=== PATIENT | male | born 1960 | race Caucasian/White ===

== ENCOUNTER 2021-10-25 11:43 | Outpatient (REF) | payer OTHER, SELFPAY ==
[2021-10-25 13:38] LABS: Binax Internal Control QC Valid; Binax Lot number: 9864; Binax Now Covid-19 Ag Negative (Negative)
== END 2021-10-25 11:44 | disposition home or self-care (01) ==
LOC: HO.LAB 11:43
PROVIDERS: Visit Provider Internal Medicine
DX: Z20.822 Contact with and (suspected) exposure to COVID-19 (principal)
CPT/HCPCS: 36415; C9803

== ENCOUNTER 2021-11-14 10:39 | Outpatient (REF) | payer OTHER, SELFPAY ==
[2021-11-14 10:58] LABS: MANUAL DIFF FLAG NO
[2021-11-14 11:32] LABS: Basophils Percent Auto 0.4 % (0-2); Eosinophils Absolute Auto 0.2 X10*3/uL (0.0-0.4); Eosinophils Percent Auto 2.9 % (0-4); Hematocrit 43.1 % (42.0-52.0); Hemoglobin 14.6 g/dl (14.0-18.0); Imm Gran Abs Auto 0.02 X10*3/uL (0.00-0.03); Imm Gran Pct Auto 0.3 % (0.0-0.4); Lymphocytes Absolute Auto 1.5 X10*3/uL (1.2-4.9); Lymphocytes Percent Auto 18.9 % (20-40); Mean Corpuscular HGB Conc 33.9 g/dl (31.0-36.0); Mean Corpuscular Hemoglobin 29.1 pg (27.0-33.0); Mean Corpuscular Volume 85.9 fL (80.0-98.0); Mean Platelet Volume 10.4 fL (9.4-12.4); Monocytes Absolute Auto 0.7 X10*3/uL (0.1-1.2); Monocytes Percent Auto 8.9 % (2-11); Neutrophils Absolute Auto 5.3 x10*3/uL (2.0-8.3); Neutrophils Percent Auto 68.6 % (45-73); Platelet Count 207 X10*3/uL (160-400); Red Blood Count 5.02 X10*6/uL (4.60-5.80); Red Cell Distribution Width 11.4 % (11.0-16.0); White Blood Count 7.7 X10*3/uL (4.8-10.8)
[2021-11-14 12:11] LABS: Alanine Aminotransferase 8 U/L (0-40); Alkaline Phosphatase 84 U/L (39-117); Anion Gap 11 (12-20); Aspartate Amino Transferase 20 U/L (5-37); Bilirubin Total 1.4 mg/dL (0.0-1.0); Blood Urea Nitrogen 15 mg/dL (9-16); Calcium 9.4 mg/dL (8.4-10.2); Carbon Dioxide 25 mmol/L (22-29); Chloride 108 mmol/L (96-108); Cholesterol 172 mg/dL; Estimated Glomerular Filt Rate > 60; Glucose Fasting 99 mg/dL (60-99); HDL Cholesterol 42 mg/dL; LDL Cholesterol Calculated 109 mg/dl; Potassium 4.3 mmol/L (3.3-5.1); Sodium 140 mmol/L (135-145); Total Protein 7.3 g/dL (6.5-8.0); Triglycerides 105 mg/dL
[2021-11-14 12:12] LABS: Prostate Specific Antigen 0.96 ng/mL (<0.05-4.0); TSH reflex Free T4 0.86 uIU/mL (0.32-4.0); Vitamin D 25-OH Total 19.9 ng/mL (>30)
[2021-11-14 12:30] LABS: Appearance Urine CLEAR; Color Urine YELLOW; Glucose Urine UA NEG (NEG); Leukocyte Esterase Urine NEG (NEG); Nitrite Urine NEG (NEG); Specific Gravity - Urine 1.025 (1.005-1.025); Urine Blood NEG (NEG); Urine Ketones NEG (NEG); Urine Protein NEG (NEG-TRACE)
== END 2021-11-14 10:40 | disposition home or self-care (01) ==
LOC: HO.LAB 10:39
PROVIDERS: PCP Internal Medicine; Visit Provider Internal Medicine
DX: Z00.00 Encounter for general adult medical examination without abnormal findings (principal); I10 Essential (primary) hypertension; E78.00 Pure hypercholesterolemia, unspecified; E66.3 Overweight; E55.9 Vitamin D deficiency, unspecified; N40.0 Benign prostatic hyperplasia without lower urinary tract symptoms; Z12.5 Encounter for screening for malignant neoplasm of prostate
CPT/HCPCS: 36415; 80053; 80061; 81003; 82306; 84153; 84443; 85025

== ENCOUNTER → 2023-03-03 10:44 | Outpatient (BNVA) | payer OTHER, SELFPAY | PROVIDERS: PCP Internal Medicine; Visit Provider Physician Assistant ==

== ENCOUNTER 2023-07-14 09:44 | Day surgery (SDC) | payer OTHER, SELFPAY ==
[2023-07-12 15:05] VITALS: BMI 26.6
--- NOTE | 2023-07-13 12:15 | P.CONAN_ITS ---
Documented by User: Roro Ragland NP 07/13/23 12:15 HPI - Anesthesia Eval Consult details Narrative: 63yo M for Colonoscopy PMFSH Active Problems Active Problems: All Active Problems (Updated 07/12/23 @ 15:03 by Debora Marinelli, DIONY) History of adenomatous polyp of colon (Acute) Colon cancer screening (Acute) Annual physical exam (Acute) Vitamin D deficiency (Acute) Psoriasis (Acute) Overweight (BMI 25.0-29.9) (Acute) Past Medical History Medical History Perforation of sigmoid colon due to diverticulitis Vitamin D deficiency Tubular adenoma of colon History of alcohol abuse (~2007) Psoriasis Overweight (BMI 25.0-29.9) Family History Family History Father Cancer Hypertension Mother Myocardial infarction Sister In good health Daughter In good health Surgical History Surgical History Hx of right inguinal hernia repair History of colon resection H/O colonoscopy History of wisdom tooth extraction History of tonsillectomy Social History Social History Housing: House Alcohol intake: former Patient Tobacco Use Status: Former Tobacco user Quit Date: quit smoking 2015 e-Cigarette/Vaping Use: Never Used Second Hand Smoke Exposure: Yes Use of substances other than those prescribed or required for medical reasons: No Are you DNR?: No Advance Directives: No Advance Directives Information Provided: Yes service: No Current occupational status: employed Meds Allergies Allergy/AdvReac Type Severity Reaction Status Date / Time No Known Allergies Allergy Verified 01/06/23 16:27 [No Known Allergies*] Exam Exam Date and Time: July 13, 2023 1215 Height,Weight and Vital Signs: Height 5 ft 8 in Weight 79.379 kg Assessment and Plan Assessment Anesthesia Assessment: Chart Reviewed Documented by User: Yeny Quintanilla MD 07/14/23 10:50 [facility] Active Problems Active Problems: All Active Problems (Updated 07/12/23 @ 10:12 by Yeny Quintanilla MD) History of adenomatous polyp of colon (Acute) Colon cancer screening (Acute) Annual physical exam (Acute) Vitamin D deficiency (Acute) Psoriasis (Acute) Overweight (BMI 25.0-29.9) (Acute) Bilirubin 1.4 Past Medical History Medical History Perforation of sigmoid colon due to diverticulitis Vitamin D deficiency Tubular adenoma of colon History of alcohol abuse (~2007) Psoriasis Overweight (BMI 25.0-29.9) Family History Family History Father Cancer Hypertension Mother Myocardial infarction Sister In good health Daughter In good health Family history of problems with anesthesia: No Surgical History Surgical History Hx of right inguinal hernia repair History of colon resection H/O colonoscopy History of wisdom tooth extraction History of tonsillectomy History of Problems with Anesthesia: No Social History Social History Housing: House Alcohol intake: former Patient Tobacco Use Status: Former Tobacco user Quit Date: quit smoking 2015 e-Cigarette/Vaping Use: Never Used Second Hand Smoke Exposure: Yes Use of substances other than those prescribed or required for medical reasons: No Are you DNR?: No Advance Directives: No Advance Directives Information Provided: Yes service: No Current occupational status: employed Meds Allergies Allergy/AdvReac Type Severity Reaction Status Date / Time No Known Allergies Allergy Verified 01/06/23 16:27 [No Known Allergies*] Exam Height,Weight and Vital Signs: Height 5 ft 8 in Weight 79.379 kg Vital Signs Temp Pulse Resp BP Pulse Ox O2 Del Method 07/14/23 10:18 98.4 F 53 16 142/91 H 98 Room Air Airway Mallampati Class: III TM Dist: >3cm Neck ROM: Full Loose/Missing/Broken Teeth: Yes (1 extraction. Denies broken, loose, missing teeth) Heart: RRR Lungs: CTAB Assessment and Plan Assessment Anesthesia Assessment: Anesthesia Plan Discussed Final Anesthetic Review Family History of Problems with Anesthesia: No History of Problems with Anesthesia: No NPO: Yes ASA Class: II Final Preanesthetic Review: No Changes in Pt Med Stat, Meds/Allgs Chart Reviewed, Consent Obtained/Reviewed and Anes Risks/Benef Reviewed Patient Risk: Intermediate Procedure Risk: Low Assessment/Block/Sedation in SS: Assess/Block/Sedation-SS Anesthetic Plan Anesthetic Plan: MAC: Disposition: Standard PACU
[2023-07-14 10:06] VITALS: BMI 25.8
[2023-07-14 10:18] VITALS: BP 142/91; PULSE 53; RESP 16; TEMP 36.9; O2SAT 98
--- NOTE | 2023-07-14 10:25 | MHC.SHP ---
Pre-Procedural Eval Section A Date of Service: 07/14/23 Section B Chief Complaint: Personal history of colonic polyps Relevant Family History (Specify if Yes): No Relevant Social History: None Present Medications: see Short Stay Collaborative assessment Medical History: Significant History (Perforation of sigmoid colon due to diverticulitis Vitamin D deficiency Tubular adenoma of colon History of alcohol abuse (~2007) Psoriasis Overweight (BMI 25.0-29.9)) History of Previous Operations: Relevant previous surgery/procedure and date(s) (Hx of right inguinal hernia repair History of colon resection H/O colonoscopy History of wisdom tooth extraction History of tonsillectomy) Allergies: Allergies Allergy/AdvReac Type Severity Reaction Status Date / Time No Known Allergies Allergy Verified 01/06/23 16:27 [No Known Allergies*] Review of Systems Sugical H&P ROS: Negative: Constitution, Cardiovascular, Respiratory, Neurological, Psychiatric, Hem-Onc, Allergic/Immunologic, Gastrointestinal, Genitourinary, Musculoskeletal, Integumentary, Endocrine and Eyes/Ears/Nose/Throat Exam Surgical H&P Exam: Normal: HEENT, Normal: Heart, Normal: Lungs, Normal: Extremities, Normal: Abdomen and Normal: Neurological and Significant Findings: Skin (psoriasis) Plan Diagnosis/Plan: Unchanged I have reviewed the history and physical and performed a pertinent physical examination on my patient. No changes have occurred unless specified. Time Spent With Patient Time: Total time managing care of this patient today ____ minutes.
[2023-07-14] MEDS: Lactated Ringers 1,000 ML 100 ML IVCONT (10:39)
--- NOTE | 2023-07-14 11:05 | W.PM.OPN ---
Operative Note Operative Note Date of Service: 07/14/23 Narrative: Operative Information Procedure Description: Colonoscopy Indication: screening Anesthesia: MAC COLONOSCOPY Instrument: Olympus variable stiffness pediatric scope 190L Colonoscopy Monitoring: Vital signs and clinical assessment, continuous EKG monitoring, Pulse oximetry, Carbon Dioxide monitoring and blood pressure monitoring were done throughout the procedure. Colon withdrawal time was 10 minutes. Procedure: The patient was placed in the left lateral decubitis position and pre-procedure medications were administered. After a digital rectal examination of the ano-rectum, the video colonoscope was inserted into the rectum and advanced through the colon to the cecum/TI. The colonoscope was slowly withdrawn in a retrograde panoramic fashion and the colon mucosa was carefully examined including a retroflexed view of the rectum. Findings and interventions are described below. Procedure Difficulty: easy Findings: Terminal Ileum-normal Cecum:normal Ascending Colon: 10-11 mm sessile polyp removed with cold snare Transverse Colon -normal Descending Colon: few small diverticula seen side to side colonic anastomosis noted, one small polyp 3-5 mm removed with cold forceps Rectum: Retroflexion with small internal hemorrhoids, grade I Anorectum - normal Colon preparation: [place] Bowel Preparation Scale Right colon; 2 Transverse colon: 3 Left colon; 3 (0 = Unprepared colon segment with mucosa not seen due to solid stool that cannot be cleared. 1 = Portion of mucosa of the colon segment seen, but other areas of the colon segment not well seen due to staining, residual stool and/or opaque liquid. 2 = Minor amount of residual staining, small fragments of stool and/or opaque liquid, but mucosa of colon segment seen well. 3 = Entire mucosa of colon segment seen well with no residual staining, small fragments of stool or opaque liquid) Impression and Post Procedure Diagnosis: polyps internal hemorrhoids diverticular disease Plan: High fiber diet leaflet Avoid straining at stool, epsom salts and sitz bath, anusol supps or cream Repeat Colonoscopy in 3-5 years due to polyps or earlier if clinically indicated Above findings were reviewed with the patient and relevant handouts were provided if indicated.
[2023-07-14 11:43] VITALS: BP 125/84; PULSE 59; RESP 22; TEMP 36.2; O2SAT 98
[2023-07-14 11:58] VITALS: BP 152/94; PULSE 54; RESP 17; TEMP 36.1; O2SAT 98
== END 2023-07-14 12:59 | disposition home or self-care (01) ==
PROVIDERS: PCP Internal Medicine; Visit Provider Internal Medicine Gastroenterology
PROC: 0DJD8ZZ Inspection of Lower Intestinal Tract, Via Natural or Artificial Opening Endoscopic (ICD-10-PCS; CPT 45378; principal; 2023-07-14 11:50)
DX: Z12.11 Encounter for screening for malignant neoplasm of colon (principal); K63.5 Polyp of colon; K57.30 Diverticulosis of large intestine without perforation or abscess without bleeding; K64.0 First degree hemorrhoids; K63.89 Other specified diseases of intestine; Z86.010 Personal history of colon polyps; E55.9 Vitamin D deficiency, unspecified; F10.11 Alcohol abuse, in remission; Z87.891 Personal history of nicotine dependence
CPT/HCPCS: 45385; 45380; 88305

== ENCOUNTER → 2023-07-14 09:44 | Outpatient (BNV) | payer OTHER, SELFPAY | PROVIDERS: PCP Internal Medicine; Visit Provider Internal Medicine Gastroenterology | DX: Z12.11 Encounter for screening for malignant neoplasm of colon (principal); D12.2 Benign neoplasm of ascending colon; D12.4 Benign neoplasm of descending colon; K64.9 Unspecified hemorrhoids | CPT/HCPCS: 45380; 45385 ==

== ENCOUNTER 2023-07-28 08:56 | Outpatient (AMB) | payer OTHER, SELFPAY ==
--- NOTE | 2023-07-28 09:03 | MHC.OFFVIS ---
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 Patient denies any GI issues. 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 He tolerated procedure well- He is able to manage hemorrhoids he has psoriasis that he also deals with he has been seen by Derm at this time he is going to hold off on other medications. Appetite is good bowels are normal No GI or general complaints Reviewed procedure report, recommendations and pathology [facility] Medical History (Updated 07/28/23 @ 09:39 by Nerissa Clemente PA-C) Perforation of sigmoid colon due to diverticulitis Vitamin D deficiency Tubular adenoma of colon History of alcohol abuse (~2007) Psoriasis Overweight (BMI 25.0-29.9) Surgical History Hx of right inguinal hernia repair History of colon resection H/O colonoscopy History of wisdom tooth extraction History of tonsillectomy Family History Father Cancer Hypertension Mother Myocardial infarction Sister In good health Daughter In good health Social History Housing: House Alcohol intake: former Patient Tobacco Use Status: Former Tobacco user Quit Date: quit smoking 2015 e-Cigarette/Vaping Use: Never Used Second Hand Smoke Exposure: Yes service: No Current occupational status: employed Review of Systems Const All systems reviewed & are unremarkable except as noted in HPI and below Card Denies chest pain and Denies dyspnea Resp Denies dyspnea Physical Exam Vital Signs: Last Vital Signs Pulse 72 07/28/23 09:04 BP 144/89 H 07/28/23 09:04 BMI result Body Mass Index 26.6 Const General: cooperative, healthy appearing and comfortable Orientation/consciousness: patient oriented x3 Limitations: no limitations Eyes Sclerae: sclerae normal Resp Effort & Inspection: normal respiratory effort and able to speak in complete sentences Skin General skin exam: dry skin (Psoriasis) Neuro General: patient oriented x3 Extrem General: Yes full ROM Psych Appearance: grossly normal and well kempt Mental Status: mental status grossly normal Speech and movement: Normal speech and movement present and Clear speech present Affect: normal affect Attitude: cooperative Thought process: Normal thought process present Thought content: Normal thought content present Insight: Good insight present (Psych) Judgement: Good judgement present (Psych) Results Reviewed Results Reviewed: Impression and Post Procedure Diagnosis: polyps internal hemorrhoids diverticular disease Plan: High fiber diet leaflet Avoid straining at stool, epsom salts and sitz bath, anusol supps or cream Repeat Colonoscopy in 3-5 years due to polyps or earlier if clinically indicated Name: Scooby Acosta Age/Sex: 63/M Attending: Coty Merchant MD : 1960 Submitted by: Coty Merchant MD Copies to: Barrett Love MD MR #: [id number] Status: [facility] [place] Collected: 07/14/23 Location: [facility] Received: 07/14/23 Diagnosis A. Colon, ascending, polyp, biopsy: Fragments of vegetable material; no colonic tissue is seen. B. Rectum, polypectomy: Hyperplastic polyp. Clinical History Pre-Op Dx: Personal history of colon polyps Post-Op Dx: Diverticulosis, internal hemorrhoids, colon polyps Microscopic Description Microscopic sections reviewed. Material Received A. Ascending colon polyp B. Rectal polyp Gross Description Received in 2 parts. Part A: Received in formalin labeled ?ascending colon polyp? are 3 irregular fragments of semitranslucent and opaque garcia-white and orange-brown debris versus tissue ranging from minute to 0.3 cm in greatest dimension which are submitted in toto in a cassette labeled A. Part B: Received in formalin labeled ?rectal polyp? are 2 glistening, semitranslucent, soft, sanchez and sanchez- pink irregular tissue fragments each measuring 0.2 cm in greatest dimension which are submitted in toto in a single cassette labeled B. CEDS Copies To Barrett Love MD [address] [place] [id number] Coty Merchant MD [address] [place] [address] DrTej Patient: Scooby Acosta Age/Sex: 63/M MR#: [id number] Page 1 of 2 Assessment & Plan Assessment & Plan (1) History of adenomatous polyp of colon: Comment: Previous colonoscopy adenomatous polyp This colonoscopy hyperplastic, no adenoma Code(s): Z86.010 - Personal history of colonic polyps Plan: Repeat asymptomatic colonoscopy 5 years (2) Hyperplastic colon polyp: Code(s): K63.5 - Polyp of colon Plan: Repeat colonoscopy 5 years due to history of adenoma (3) Diverticulosis: Code(s): K57.90 - Diverticulosis of intestine, part unspecified, without perforation or abscess without bleeding Plan: Maintain high-fiber diet ER protocol (4) Hemorrhoids: Code(s): K64.9 - Unspecified hemorrhoids Plan: High-fiber diet avoid straining Plan Repeat asymptomatic colonoscopy 5 Patient Instructions: Very pleasant 63-year-old Gent personal history of adenomatous polyps follows up after repeat colonoscopy showing hyperplastic polyp. Recommend repeat asymptomatic colonoscopy 5 years due to history of adenoma Reviewed procedure report, pathology recommendations Diverticulosis/diverticulitis ER protocol Maintain high-fiber diet Avoid straining with hemorrhoid Will follow up with Derm at his convenience for psoriasis Encouraged to call with any questions or concerns Appreciate the opportunity assist in the care this pleasant Gent Coding Level of Care Code Est Pt Level 3 (26319) Diagnoses History of adenomatous polyp of colon Z86.010 Hyperplastic colon polyp K63.5 Diverticulosis K57.90 Hemorrhoids K64.9 Time Spent (min) 25
[2023-07-28 09:04] VITALS: BP 144/89; PULSE 72; BMI 26.6
== END 2023-07-28 10:06 | disposition home or self-care (01) ==
PROVIDERS: PCP Internal Medicine; Visit Provider Physician Assistant
DX: Z86.010 Personal history of colon polyps (principal); K63.5 Polyp of colon; K57.90 Diverticulosis of intestine, part unspecified, without perforation or abscess without bleeding; K64.9 Unspecified hemorrhoids
CPT/HCPCS: 99213

== ENCOUNTER → 2023-07-28 08:56 | Outpatient (BNVA) | payer OTHER, SELFPAY | PROVIDERS: PCP Internal Medicine; Visit Provider Physician Assistant ==

== ENCOUNTER 2024-02-07 09:13 | Outpatient (AMB) | payer OTHER, SELFPAY ==
--- NOTE | 2024-02-07 09:32 | A.OFFPC_ITS ---
Vital Signs 02/07/24 09:33 Height 5 ft 8 in Weight 179 lb 4 oz BMI 27.3 BP 130/60 Blood Pressure Location Lt brachial Position Sitting Pulse 58 Pulse Source Pulse Oximeter Pulse Oximetry (%) 98 Oxygen Delivery Method Room Air Intake Visit Reasons: Annual Exam Intake Note: Patient is here today for a physical. Cloth Bolt Bander Required: No Stone Grader: Not Required per policy Accompanied by: Self / Same As Patient Allergies No Known Allergies [No Known Allergies*] Allergy (Verified 02/07/24 10:12) Medication List - Last Reconciled 02/07/24 by Barrett Love MD No Known Home Meds Tobacco use date assessed: 02/07/24 Fall risk assessment: No Falls in past year Last assessed Fall Risk: 02/07/24 Dental Screening Dental Screen Date: 02/07/24 Did you have a dental visit in the last 12 months?: No Did you have a dental problem in the last 6 months where you did not have access to dental care?: No Was dental information given to patient?: No HPI Annual Exam HPI Details Patient comes in today for his annual physical examination States that he feels okay He denies any headaches or dizziness Denies any chest pains, no SOB No nausea/vomiting, no abdominal pain No change in bowel habits noted He denies any acute urinary symptoms He still has recurrent / scattered psoriasis lesions but states that they have been mostly manageable and he does not need or use anything for them other than OTC lotions/moisturizers PRN He had his repeat colonoscopy done with Dr. Merchant back in June 2023 - was recommended another repeat colonoscopy in 3 to 5 years [facility] Medical History Perforation of sigmoid colon due to diverticulitis Vitamin D deficiency Tubular adenoma of colon History of alcohol abuse (~2007) Psoriasis Overweight (BMI 25.0-29.9) Surgical History (Updated 02/07/24 @ 10:28 by Barrett Love MD) Hx of right inguinal hernia repair History of colon resection H/O colonoscopy History of wisdom tooth extraction History of tonsillectomy Family History Father Cancer Hypertension Mother Myocardial infarction Sister In good health Daughter In good health Social History Housing: House Alcohol intake: former Patient Tobacco Use Status: Former Tobacco user Quit Date: quit 2015 e-Cigarette/Vaping Use: Never Used Second Hand Smoke Exposure: Yes service: No Current occupational status: employed Cognitive needs: No Hearing needs: No Vision needs: Yes (Reading glasses) Questionnaire PHQ-9 Over the last 2 weeks, how often have you been bothered by any of the following problems? 1. Little interest or pleasure in doing things: not at all 2. Feeling down, depressed, or hopeless: not at all 3. Trouble falling or staying asleep, or sleeping too much: not at all 4. Feeling tired or having little energy: not at all 5. Poor appetite or overeating: not at all 6. Feeling bad about yourself - or that you are a failure or have let yourself or your family down: not at all 7. Trouble concentrating on things, such as reading the newspaper or watching television: not at all 8. Moving or speaking so slowly that other people could have noticed. Or the opposite - being so fidgety or restless that you have been moving around a lot more than usual: not at all 9. Thoughts that you would be better off or of hurting yourself in some way: not at all Total score: 0 Depression Screening Interpretation: Negative Depression Screening Done: Yes 41930 - PHQ-9 Billing: Yes Source: Developed by Drs. Jignesh Hernández, Kay Redman, Oj Salomon and colleagues, with an educational adrian from [employer]. Thrive Questionnaire Date Thrive assessed: 02/07/24 I am a: Patient What is your living situation today?: I have a steady place to live Within the past 12 months, did the food you bought not last and you didn't have the money to get more?: Never true Within the past 12 months, did you worry whether your food would run out before you got money to buy more?: Never true Do you have trouble paying for medicines?: No Do you have trouble getting transportation to medical appointments?: No Do you have trouble paying your heating and electricity bill?: No Do you have trouble taking care of your child, family member or friend?: No Do you have trouble with day-to-day activities such as bathing, preparing meals, shopping, managing finances, etc.?: No Are you currently unemployed and looking for a job?: No Are you interested in more education?: No Currently or been in a relationship where the following occur: no concerns reported THRIVE Score: 0 AUDIT C Alcohol Use Questionnaire (AUDIT-C) 1. How often do you have a drink containing alcohol?: Never 3. How often do you have six or more drinks on one occasion?: Never Total Score: 0 Score Reviewed/Action Taken: Yes CHARLES-7 AMB Questionnaire CHARLES-7 Date CHARLES - 7 assessed: 02/07/24 Feeling nervous, anxious, or on edge: 0 = Not at all Not being able to stop or control worryin = Not at all Worrying too much about different things: 0 = Not at all Trouble relaxin = Not at all Being so restless that it is hard to sit still: 0 = Not at all Becoming easily annoyed or irritable: 0 = Not at all Feeling afraid as if something awful might happen: 0 = Not at all Total CHARLES-7 score (0-4 normal; 5-9 mild; 10-14 moderate; 15-21 severe): 0 Source: Developed by Drs. Jignesh Hernández, Kay Redman, Oj Salomon and colleagues, with an educational adrian from [employer]. Review of Systems Const Denies chills, Denies difficulty sleeping, Denies fatigue, Denies fever(s), Denies headache(s) and Denies malaise Eyes Denies blurry vision, Denies change in vision, Denies irritation and Denies itchy eyes ENT Denies dysphagia, Denies dizziness, Denies otalgia, Denies headache(s), Denies nasal congestion, Denies neck pain, Denies odynophagia and Denies sore throat Card Denies chest pain, Denies rapid heart rate, Denies irregular heart rhythm, Denies palpitations and Denies dyspnea Resp Denies chest congestion, Denies cough, Denies dyspnea and Denies wheezing GI Denies abdominal pain, Denies bloating, Denies constipation, Denies dysphagia, Denies heartburn, Denies diarrhea, Denies nausea, Denies odynophagia and Denies vomiting Denies hematuria, Denies difficulty urinating, Denies dysuria, Denies testicular pain, Denies urinary frequency, Denies urinary incontinence and Denies urinary urgency Musc Denies back pain, Denies arthralgias, Denies joint swelling, Denies muscle weakness and Denies neck pain Skin/Breast Reports dry skin and Reports rash (scattered scaling psoriasis rash) Neuro Denies dizziness, Denies headache(s) and Denies paresthesias Endo Denies fatigue and Denies palpitations Aller/Immun Denies itchy eyes and Denies wheezing Physical exam (Primary Care) Vital Signs: Last Vital Signs Pulse 58 02/07/24 09:33 BP 130/60 02/07/24 09:33 Pulse Ox 98 02/07/24 09:33 Oxygen Delivery Method Room Air 02/07/24 09:33 BMI result Body Mass Index 27.3 Tobacco/Smoking Status: Tobacco use Status Tobacco use date assessed 02/07/24 02/07/24 09:37 Patient Tobacco Use Status Former Tobacco user 02/07/24 09:37 e-Cigarette/Vaping Use Never Used 02/07/24 09:37 PHQ-9: PHQ-9 Score PHQ-9: Total score 0 02/07/24 09:37 Depression Screening Interpretation: Negative Thrive Assessment: Date of Thrive Assessment Date Thrive assessed 02/07/24 02/07/24 09:37 Currently or been in a relationship where the following occur: no concerns reported Const General: no acute distress, alert and awake Orientation/consciousness: patient oriented x3 HENMT Head: Yes normocephalic and Yes atraumatic Ears: external ears normal, TM's normal bilaterally and EAC's normal General nose exam: No nasal discharge present Face and sinus: Yes normal facial exam and Yes sinuses nontender Teeth and gingiva: dentition normal Throat: Yes posterior oropharynx normal and Yes tonsils normal (no TP congestion) Eyes Eyelids: Yes eyelids normal Conjunctivae: conjunctivae normal Pupils: Equal, round and reactive pupils present EOM: EOMs intact bilaterally Neck Neck: Yes no lymphadenopathy and Yes supple Thyroid: Thyroid normal Resp Auscultation: clear to auscultation bilaterally, no rales and no wheezes Cardio Rate: regular rate Rhythm: regular rhythm Heart sounds: no murmurs GI Palpation (GI): Soft to palpation, nontender and No hepatosplenomegaly present Auscultation: normal bowel sounds General: Yes no CVA tenderness Back/Spine/Pelvis Back: no CVA tenderness Thoracic/Lumbar Spine: thoracic and lumbar spine normal to inspection Skin Other: (+) scattered extensive scaling rash (psoriasis), especially over the extremities Lesions: no lesions Neuro General: patient oriented x3, moves all extremities, no focal motor deficits and CN's II-XI intact bilaterally Cranial nerves: Yes CN's II-XII intact bilaterally and Yes Equal, round and reactive pupils present Cognition (Neuro): normal cognition Gait exam (Neuro): Normal gait present Extrem General: Yes no clubbing, cyanosis or edema Assessment and Plan Assessment & Plan (1) Annual physical exam: Code(s): Z00.00 - Encounter for general adult medical examination without abnormal findings Plan: Check labs He is now up-to-date on his colon cancer screening (2) Psoriasis: Code(s): L40.9 - Psoriasis, unspecified Plan: Is currently only using OTC topical steroid creams and moisturizers as needed for symptomatic relief Advised again that he can contact his 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 spring upholsterer if he wants to inquire about potential treatment options as there are now non-steroidal Rx cream that can be used to treat psoriasis / eczema and they can probably help clear up a lot of his rash more effectively and control his symptoms better Patient states that he's had no unusual joint pains/symptoms lately - advised that he should let us know if he does as this may indicate the onset of psoriatic arthritis, which can occur in patients with psoriasis Will check his ESR and CRP for screening purposes (3) Vitamin D deficiency: Code(s): E55.9 - Vitamin D deficiency, unspecified Plan: Continue Vitamin D3 2000 units QD Will recheck his Vitamin D level for follow up (4) Overweight (BMI 25.0-29.9): Code(s): E66.3 - Overweight Plan: Reinforced diet/exercise as tolerated/lose weight Plan To return in 1 year for his next annual physical examination Orders: Orders Complete Blood Count Auto Diff Today D64.9 - Anemia, unspecified, Z00.00 - Encounter for general adult medical examination without abnormal findings UA CC w/rflx Micro + Cult Today R30.0 - Dysuria, Z00.00 - Encounter for general adult medical examination without abnormal findings Vitamin D 25-OH Total Today E55.9 - Vitamin D deficiency, unspecified, Z00.00 - Encounter for general adult medical examination without abnormal findings Prostate Specific Antigen Today N40.0 - Benign prostatic hyperplasia without lower urinary tract symptoms, Z00.00 - Encounter for general adult medical examination without abnormal findings Comprehensive [place]. Panel Fast Today E78.00 - Pure hypercholesterolemia, unspecified, Z00.00 - Encounter for general adult medical examination without abnormal findings Lipid Panel Today E78.00 - Pure hypercholesterolemia, unspecified, Z00.00 - Encounter for general adult medical examination without abnormal findings TSH reflex Free T4 Today E78.00 - Pure hypercholesterolemia, unspecified, Z00.00 - Encounter for general adult medical examination without abnormal findings Erythrocyte Sedimentation Rate Today L40.9 - Psoriasis, unspecified C Reactive Protein Today L40.9 - Psoriasis, unspecified Rheumatoid Factor Today L40.9 - Psoriasis, unspecified Coding Level of Care Code Est Pt Prev Care 40-64y(17352) Diagnoses Annual physical exam Z00.00 Psoriasis L40.9 Vitamin D deficiency E55.9 Overweight (BMI 25.0-29.9) E66.3
[2024-02-07 09:33] VITALS: BP 130/60; PULSE 58; O2SAT 98; BMI 27.3
== END 2024-02-07 10:23 | disposition home or self-care (01) ==
PROVIDERS: PCP Internal Medicine; Visit Provider Internal Medicine
DX: Z00.00 Encounter for general adult medical examination without abnormal findings (principal); L40.9 Psoriasis, unspecified; E55.9 Vitamin D deficiency, unspecified; E66.3 Overweight
CPT/HCPCS: 99396